=== PATIENT | female | born 1980 | race Caucasian/White ===

== ENCOUNTER 2016-08-16 11:47 | Emergency (ER) | payer OTHER ==
[2016-08-16 12:01] VITALS: BP 145/95; PULSE 67; RESP 16; TEMP 98.4; O2SAT 98
--- NOTE | 2016-08-16 12:28 | UCPHY ---
H & P Time Seen by Provider: 08/16/16 12:00 Patient Type: New HPI/ROS: HPI Swelling left mid leg. 35-year-old female by private vehicle. She noticed a small swelling left medial mid leg this morning. Reports it is tender to touch. No fever. No other complaints. No history of trauma. ROS: Constitutional: No fever, no chills. No weakness. Musculoskeletal: No back pain. No neck pain. No myalgias or arthralgias. Skin: No rashes. As above. Neurological: No headache. No focal weakness or altered sensation. Past medical history: Includes myocardial infarction x2 with history of coronary artery dissection. Denies connective tissue disorder. No diabetes. She is not immunocompromised. She is currently on aspirin, metoprolol and a novel anticoagulant. Social history: Here by herself. Nonsmoker. Physical Exam: General Appearance: Alert, no distress. This patient is responding to questions appropriately and in full sentences. This patient appears well- hydrated and well-nourished. Left leg exam: Significant for a 2 mm mildly erythematous welt. No spreading or surrounding erythema. This is tender to the touch. It does not have a fluctuant head. It appears to be an infected hair follicle. Left lower extremity is otherwise neurovascularly intact. Neurological: Motor sensory function is grossly intact. Cranial nerves are normal. Gait is normal. Skin: Warm and dry, no rashes. As above. Extremities are symmetrical. All joints range without pain or impingement. Psychiatric: No agitation. No depression. Database: EKG: Imaging: Procedures: Procedure: Abscess drainage. The patient's abscess was located on the left medial leg. I obtained verbal consent from the patient to drain the abscess who was informed about the possibility of bleeding and pain. The abscess was incised with 11. Blade scalpel, 1 mm stab incision and a small amount of purulent drainage was expressed. This will be cultured in Gram stained. The patient tolerated the procedure well. The procedure was performed by myself. Emergency department course: After above procedure, discussed management. No surrounding erythema. This appears to be a clot hair follicle. It was drained as above. I do not feel that antibiotics are required at this time. The incision and drainage site was appropriately dressed. Follow-up and return to emergency department precautions reviewed with the patient. All of her questions were answered. Patient was discharged in good condition. Differential Diagnosis: The differential diagnosis on this patient includes but is not limited to small abscess, clogged hair follicle. Cellulitis, necrotizing fasciitis, traumatic injury unlikely. This represents a partial list of diagnoses considered. These considerations are based on history, physical exam, past history, reassessment and diagnostic testing. Smoking Status: Never smoked Constitutional: Initial Vital Signs Temperature (C) 36.9 C 08/16/16 11:59 Heart Rate 67 08/16/16 11:59 Respiratory Rate 16 08/16/16 11:59 Blood Pressure 145/95 H 08/16/16 11:59 O2 Sat (%) 98 08/16/16 11:59 O2 Delivery Mode Room Air Allergies/Adverse Reactions: No Known Allergies Allergy (Verified 08/16/16 12:01) Home Medications: Medication Instructions Recorded Zoloft 25mg (RX) 08/02/14 Aspirin 08/16/16 Brilinta 08/16/16 Metoprolol Tartrate 08/16/16 Departure - Departure Disposition: Home, Routine, Self-Care Clinical Impression: Abscess of left leg Condition: Good Instructions: Abscess (ED) Additional Instructions: Read and follow provided instructions. Follow-up with your primary care physician in 1-2 days for re-evaluation. Continue your medications as prescribed Return to the emergency department for redness or swelling around the incision area, fever, pain or other serious concerns. Referrals: ALMAZ GORDON [Primary Care Provider] - As per Instructions - PQRS PQRS Measurement: Not applicable.
== END 2016-08-16 12:41 | disposition home or self-care (01) ==
LOC: CED 11:47
PROC: 0H9LXZZ Drainage of Left Lower Leg Skin, External Approach (ICD-10-PCS; principal; 2016-08-16)
DX: L02.416 Cutaneous abscess of left lower limb (principal); I25.2 Old myocardial infarction
CPT/HCPCS: 99203-PO; G0463-PO